=== PATIENT | male | born 1950 | race Caucasian/White ===

== ENCOUNTER 2017-12-23 08:39 | Outpatient (CLI) | payer MEDICARE, MEDICAID ==
[~2017-12-23 08:39] MED LIST: ISOVUE-370 76%-LOCM 1 ML ONE
--- NOTE | 2017-12-23 20:03 | CT ---
CT CHEST WITH CONTRAST CT ABDOMEN AND PELVIS WITH CONTRAST 12/23/[address] of the chest, abdomen and pelvis was performed for evaluation of weight loss in this patien t with a history of diarrhea. Axial slices were acquired after giving IV contrast and sagittal and co yeni reconstructions were done. Both oral and IV contrast were employed. CT OF THE THORAX: Spiral CT of the thorax shows the lungs are clear. There are no acute infiltrates or pulmonary masses . No effusions are present. Some minor scarring is seen in the right base posteriorly. There are argenis ral old rib fractures on the right side, mainly in the 6th, 7th, and 8th rib range. Some are well hea led while others may not be fully united. The mediastinum shows no mass or adenopathy. The heart size is normal but there is dense coronary arteriosclerosis in both the right and left coronary circulati ons. The aorta shows no sign of aneurysm. IMPRESSION: Advanced coronary arteriosclerosis. No acute thoracic findings. Old right rib fractures. CT ABDOMEN AND PELVIS: The liver and spleen are normal in size. Patient has had a prior cholecystectomy. There is some air i n the biliary tree, particularly in the left lobe, that may be due to the prior gallbladder surgery. I see air in the common bile duct down to the duodenal level. the spleen is normal in size. No focal abnormalities of the pancreas were seen. There is probably a small 2 cm mass associated with the righ t adrenal gland with intermediate density CT numbers that do not allow me to assess that this might b e an adenoma or not. The probability of its significance seems somewhat low. Bilateral renal cysts ar e present and numerous. The largest measures just over 5 cm in the left kidney. There is no solid mas s or hydronephrosis. There are calcifications seen in each kidney, but many of them may be vascular i n nature. The abdominal aorta is densely calcified. There is no aneurysm. There may be a chronic fals e channel in the mid abdominal aorta as I see a calcification in the central part of it indicating th is is longstanding. The major finding on the study is moderate gaseous distention of the colon from the cecum around to a point just passed the splenic flexure. Beginning at a level of the proximal descending colon, the co jose rafael assumes a more normal caliber. If the patient has not had endoscopy, it might be contemplated to look at this area and make sure there is no relative obstruction or pathology here. There is no thick ening of the colonic wall. There is no sign of diverticulitis. A few loops or proximal small bowel caceres ve questionably thickened loops, but the majority of the small bowel does not. No free fluid or free air was seen. CT of the pelvis shows no pelvic masses, fluid collections, or inflammatory changes. A very large cielo cification is seen in the prostate. IMPRESSION: 1. Intra and extrahepatic biliary air, probably the patient's baseline postoperatively. 2. Dilated colon from cecum to proximal descending region. It assumes a more normal caliber afte r that. Investigation of that section of colon is encouraged. 3. Diffuse arteriosclerosis. 4. Other findings as listed above. POS: HOME
== END 2017-12-23 08:40 | disposition home or self-care (01) ==
LOC: BURCT 08:39
PROVIDERS: ATTEND Family Medicine
DX: I25.10 Atherosclerotic heart disease of native coronary artery without angina pectoris (principal); I70.90 Unspecified atherosclerosis; K59.39 Other megacolon
CPT/HCPCS: 71260; 74177; 87045; 87046; 87081; 87177; 87324; 87449; 87899; A4216

== ENCOUNTER 2018-01-29 10:59 | Emergency (ER) | payer MEDICARE, MEDICAID ==
[2018-01-29 11:47] LABS: #Basophils 0.1 thou/uL (0.0-0.2); #Eosinphils 0.2 thou/uL (0.0-0.7); #Monocytes 0.6 thou/uL (0.11-0.59); #Neutrophils 2.6 thou/uL (1.40-6.50); %Eosinophils 3.1 % (0.0-10.0); %Lymphocytes 36.9 % (21.0-51.0); %Monocytes 10.6 % (0.0-10.0); %Neutrophils 48.4 % (42.0-75.0); Hemoglobin 11.1 g/dL (14.0-18.0); MDiff Complete? YES; Mean Corpuscular HGB CONC 33.4 g/dL (32.0-36.0); Mean Corpuscular Hemoglobin 26.2 pg (27.0-31.0); Mean Corpuscular Volume 78.6 fL (78.0-98.0); Mean Platelet Volume 6.7 fL (7.4-10.4); Microcytosis SLIGHT = 6-15 cells (100X) (0-5/hpf); Platelet Count 167 thou/uL (130-400); RBC Distribution Width 18.8 % (11.5-14.5); Red Blood Cell (RBC) Count 4.24 mill/uL (4.70-6.10); White Blood Cell (WBC) Count 5.3 thou/uL (4.8-10.8)
[2018-01-29 11:49] LABS: ALT (SGPT) 22 U/L (8-55); AST (SGOT) 26 U/L (5-34); Alkaline Phosphatase 63 U/L (40-150); Anion Gap 16 mmol/L (10-20); BUN (Urea Nitrogen) 24 mg/dL (8.4-25.7); Bilirubin, Total 0.5 mg/dL (0.2-1.2); Calc. Creatinine Clearance 0 mL/min (70-130); Calcium 9.4 mg/dL (7.8-10.44); Carbon Dioxide 22 mmol/L (23-31); Chloride 105 mmol/L (98-107); Estimated GFR-MDRD 34; Globulin 2.8 g/dL (2.4-3.5); Glucose 114 mg/dL (80-115); Lipase 234 U/L (8-78); Protein, Total 6.8 g/dL (5.8-8.1); Sodium 140 mmol/L (136-145)
[2018-01-29 11:50] LABS: CKMB 3.7 ng/mL (0-6.6); Troponin I 0.029 ng/mL (< 0.028)
[2018-01-29 12:00] LABS: Acetaminophen Less than 6.0 mcg/mL (10.0-30.0); Alcohol Less than 10 mg/dL (Less than 10); Salicylate Less than 8.0 mg/dL (15.0-30.0)
[2018-01-29 12:01] LABS: Prothrombin Time 12.9 SEC (12.0-14.7)
[2018-01-29 12:02] LABS: D-Dimer Test 1.68 *mcg/mL (0.27-0.43); PTT 30.1 SEC (22.9-36.1)
[2018-01-29] MEDS ORDERED: Potassium Chloride 20 MEQ TAB ONE ×2 (12:10→12:27)
[2018-01-29] MEDS ORDERED: Potassium Chloride 20 MEQ/100 ML PREMIX BAG ONE (12:11)
[2018-01-29] MEDS ORDERED: Furosemide 40 MG/4 ML VIAL ONE (13:27)
--- NOTE | 2018-01-29 15:14 | CT ---
CT OF THE BRAIN WITHOUT CONTRAST: Date: 01/29/18 No prior scans were available for comparison. FINDINGS: Diffuse atrophy is present, perhaps a bit more than expected for age. Much of the anterior inferior l eft temporal lobe is missing and replaced by a CSF area. This is probably the result of prior infarct ion or damage to the temporal lobe rather than this being an arachnoid cyst, though the latter is in the differential. This is obviously longstanding and not acute. Elsewhere, the ventricles are normal in size for age and atrophy. Patchy deep white matter lucency is typical of chronic microvascular isc hemia. There is no strong sign of acute stroke, though BRENNEN would be more sensitive to such. No bleedi ng, edema, or mass was seen. The visible paranasal sinuses and mastoid air cells are clear. IMPRESSION: Chronic ischemic and atrophic changes as noted. No acute intracranial findings. POS: HOME
--- NOTE | 2018-01-29 15:15 | RAD ---
PELVIS 1 VIEW: Date: 01/29/18 No fracture or area of bony destruction was seen. Vascular calcifications evident. There was a midlin e calcification seen just above the pubic symphysis. A large calcification just above the pubic symph ysis appears to be related to the prostate when reviewing a 12/23/17 CT scan. Prior lower lumbar surg juan is noted. Hip joints are symmetrical. IMPRESSION: Chronic changes, but no acute findings. POS: HOME
--- NOTE | 2018-01-29 15:19 | RAD ---
PORTABLE CHEST: Date: 01/29/18 An AP portable film at 1155 hours is compared with the December CT study. Cardiomegaly is present, but th ere are no signs of vascular congestion, edema, pleural effusion, or pneumonia. The lungs are clear. The right hemidiaphragm is elevated by gas beneath the diaphragm. This appears to be in distended col on. Referring back to the patient's December CT scan, the colon was quite distended from cecum to splenic flexure and did insinuate itself between the liver and diaphragm. That is exactly what appears to be happening here. It was noted on that exam that the possibility of a narrowing or stricture of the co jose rafael around the splenic flexure level should be considered. The degree of distention is considerable, but actually may be a little less than before. IMPRESSION: 1. Mild cardiomegaly without congestive findings. 2. Distended colon, particularly beneath the right hemidiaphragm. Comparing with the recent CT scan, this does appear to be in colon and not free air. Additionally, in talking with the ER physician, th e patient does not currently have any abdominal symptoms. POS: HOME
== END 2018-01-29 13:44 | disposition home or self-care (01) ==
LOC: BURERS 10:59
DX: I13.2 Hypertensive heart and chronic kidney disease with heart failure and with stage 5 chronic kidney disease, or end stage renal disease (principal); I50.9 Heart failure, unspecified; E11.22 Type 2 diabetes mellitus with diabetic chronic kidney disease; N18.6 End stage renal disease; I25.10 Atherosclerotic heart disease of native coronary artery without angina pectoris; F17.210 Nicotine dependence, cigarettes, uncomplicated; Z79.899 Other long term (current) drug therapy; Z79.84 Long term (current) use of oral hypoglycemic drugs
CPT/HCPCS: 36416; 70450; 71045; 72170; 80053; 80307; 82553; 83605; 83690; 83880; 84443; 84484; 85025; 85379; 85610; 85652; 85730; 87040; 93005; 96365; 96375; J1940; J3480

== ENCOUNTER 2018-03-01 08:21 | Emergency (ER) | payer MEDICARE ==
--- NOTE | 2018-03-01 19:13 | RAD ---
PORTABLE CHEST: 03/01/2018 COMPARISON: 01/29/2018 FINDINGS: The heart is normal in size, perhaps upper normal at most. Median sternotomy sutures cata prior surg juan. There is no vascular congestion or edema. The trachea shows no deviation. Elevation of the ri ght hemidiaphragm with air beneath it is a chronic condition in this patient and is apparently in col on. This appearance has been seen on multiple prior films. No fractures are evident. IMPRESSION: Chronic changes but no acute finding. POS: HOME
--- NOTE | 2018-03-01 19:16 | RAD ---
PELVIS ONE VIEW: 03/01/2018 COMPARISON: 01/29/2018 FINDINGS: No gross fracture is identified. The hips are symmetrical, and the pubic rings appear intact. The S I joints are symmetrical. The symphysis shows no widening or offset. Large calcifications are seen in the midline, just above the symphysis, which may be in the prostate or bladder. Subtle fractures would be missed on this study and would only be seen with CT. IMPRESSION: No acute bony finding. POS: HOME
== END 2018-03-01 09:27 | disposition home or self-care (01) ==
LOC: BURERS 08:21
DX: M54.2 Cervicalgia (principal); M25.559 Pain in unspecified hip; M54.9 Dorsalgia, unspecified; E11.9 Type 2 diabetes mellitus without complications; I13.2 Hypertensive heart and chronic kidney disease with heart failure and with stage 5 chronic kidney disease, or end stage renal disease; N18.6 End stage renal disease; I50.9 Heart failure, unspecified; F17.210 Nicotine dependence, cigarettes, uncomplicated; Z79.84 Long term (current) use of oral hypoglycemic drugs; Z79.899 Other long term (current) drug therapy; W07.XXXA Fall from chair, initial encounter
CPT/HCPCS: 71045; 72170